=== PATIENT | female | born 1985 | race African-American/Black ===

== ENCOUNTER 2017-12-20 14:04 | Emergency (ER) | payer BC ==
[2017-12-20 14:46] LABS: ABS Basophils 0 10^3/ul (0-0.2); ABS Eosinophils 0 10^3/ul (0-0.6); ABS Lymphocytes 1.3 10^3/ul (1.0-4.8); ABS Monocytes 0.3 10^3/ul (0-0.8); ABS Nucleated RBC 0 10^3/ul; Eosinophil % 0.8 % (0-6); Hematocrit 40 % (35-47); Hemoglobin 13.5 g/dl (12.0-16.0); Lymphocyte % 27.4 % (25-47); Mean Corpuscular HGB Conc 34 g/dl (31-36); Mean Corpuscular Hemoglobin 28 pg (27-31); Mean Corpuscular Volume 84 fL (80-97); Mean Platelet Volume 9.2 um3 (7.4-10.4); Nucleated Red Blood Cells % 0.1; Platelet Count 170 10^3/ul (150-450); Red Blood Count 4.79 10^6/ul (4.00-5.40); Red Cell Distribution Width 13 % (10.5-15); White Blood Count 4.6 10^3/ul (3.5-10.8)
--- NOTE | 2017-12-20 14:57 | ED ---
Psychiatric Complaint - HPI Summary HPI Summary: This patient is a 32 year old F presenting to [facility] with a chief complaint of depression and SI with self-harm to her wrists. She states she started a new control 2 weeks ago which she thinks resulted in a rapid-onset of severe depression. She has a Hx of depression and states she had it under control until she started the new control. She takes 150mg of Zoloft for her depression and has been taking her medication. She has had more trouble sleeping in the last couple weeks which she states is a side effect of her control. - History Of Current Complaint Chief Complaint: EDMentalHealth Time Seen by Provider: 12/20/17 14:19 Hx Obtained From: Patient ?: No Onset/Duration: Sudden Onset Timing: Constant Severity Initially: Moderate Severity Currently: Moderate Character: Depressed Related History: Positive For: Prior Psychiatric Issues Has Suicidal: Reports: Thoughts - Allergies/Home Medications Allergies/Adverse Reactions: Allergies Allergy/AdvReac Type Severity Reaction Status Date / Time adapalene [From Differin] Allergy Unknown Verified 12/20/17 14:08 Reaction Details sesame seed Allergy Anaphylatic Verified 12/20/17 14:08 Shock tioconazole Allergy Unknown Verified 12/20/17 14:08 [From Monistat 1 Reaction (tioconazole)] Details Home Medications: Home Medications Zoloft 150 mg PO DAILY 12/20/17 [History Confirmed 12/20/17] PMH/Surg Hx/FS Hx/Imm Hx Cardiovascular History: Denies: Hx Coronary Artery Disease Psychiatric History: Reports: Hx Depression Infectious Disease History: No Infectious Disease History: Denies: Traveled Outside the [place] in Last 30 Days - Family History Known Family History: Negative: Cardiac Disease, Diabetes - Social History Alcohol Use: None Substance Use Type: Reports: None Smoking Status (MU): Never Smoked Tobacco Review of Systems Negative: Fever Positive: Depressed All Other Systems Reviewed And Are Negative: Yes Physical Exam - Summary Physical Exam Summary: VITAL SIGNS: Reviewed. GENERAL: Patient is a well-developed and nourished FEMALE who is lying comfortable in the stretcher. Patient is not in any acute respiratory distress. HEAD AND FACE: No signs of trauma. No ecchymosis, hematomas or skull depressions. No sinus tenderness. EYES: PERRLA, EOMI x 2, No injected conjunctiva, no nystagmus. EARS: Hearing grossly intact. Ear canals and tympanic membranes are within normal limits. MOUTH: Oropharynx within normal limits. NECK: Supple, trachea is midline, no adenopathy, no JVD, no carotid bruit, no c- spine tenderness, neck with full ROM. CHEST: Symmetric, no tenderness at palpation LUNGS: Clear to auscultation bilaterally. No wheezing or crackles. CVS: Regular rate and rhythm, S1 and S2 present, no murmurs or gallops appreciated. ABDOMEN: Soft, non-tender. No signs of distention. No rebound no guarding, and no masses palpated. Bowel sounds are normal. EXTREMITIES: FROM in all major joints, no edema, no cyanosis or clubbing. NEURO: Alert and oriented x 3. No acute neurological deficits. Speech is normal and follows commands. SKIN: Dry and warm PSYCH: Depressed, quiet, and SI. No homicidal thoughts or plan. No signs of psychosis or pressure speech. No tangential speech. Triage Information Reviewed: Yes Vital Signs On Initial Exam: Initial Vitals Temp Pulse Resp BP Pulse Ox 98.4 F 62 15 143/68 98 12/20/17 14:08 12/20/17 14:08 12/20/17 14:08 12/20/17 14:08 12/20/17 14:08 Vital Signs Reviewed: Yes Diagnostics - Vital Signs Vital Signs Temp Pulse Resp BP Pulse Ox 12/20/17 14:08 98.4 F 62 15 143/68 98 - Laboratory Lab Results: Lab Results 12/20/17 Range/Units 14:35 WBC 4.6 (3.5-10.8) 10^3/ul RBC 4.79 (4.00-5.40) 10^6/ul Hgb 13.5 (12.0-16.0) g/dl Hct 40 (35-47) % MCV 84 (80-97) fL MCH 28 (27-31) pg MCHC 34 (31-36) g/dl RDW 13 (10.5-15) % Plt Count 170 (150-450) 10^3/ul MPV 9.2 (7.4-10.4) um3 Neut % (Auto) 64.1 (38-83) % Lymph % (Auto) 27.4 (25-47) % [place] % (Auto) 7.1 H (0-7) % Eos % (Auto) 0.8 (0-6) % Baso % (Auto) 0.6 (0-2) % Absolute Neuts (auto) 3.0 (1.5-7.7) 10^3/ul Absolute Lymphs (auto) 1.3 (1.0-4.8) 10^3/ul Absolute Monos (auto) 0.3 (0-0.8) 10^3/ul Absolute Eos (auto) 0 (0-0.6) 10^3/ul Absolute Basos (auto) 0 (0-0.2) 10^3/ul Absolute Nucleated RBC 0 10^3/ul Nucleated RBC % 0.1 Result Diagrams: 12/20/17 14:35 12/20/17 14:35 Lab Statement: Any lab studies that have been ordered have been reviewed, and results considered in the medical decision making process. Course/Dx - Course Assessment/Plan: This patient is a 32 year old F presenting to [facility] with a chief complaint of depression and SI with self-harm to her wrists. She states she started a new control 2 weeks ago which she thinks resulted in a rapid -onset of severe depression. She has a Hx of depression and states she had it under control until she started the new control. She takes 150mg of Zoloft for her depression and has been taking her medication. She has had more trouble sleeping in the last couple weeks which she states is a side effect of her control. Blood work w/o a significant abnormality. She is medically cleared. She is awaiting for a [facility]. Patient is hemodynamically stable and A+O x 3. Patient assessed by Dr. Booth and recommends discharge home with F/U of [facility] as an outpatient. - Differential Dx/Clinical Impression Differential Diagnosis/HQI/PQRI: Positive: Anxiety, Depression, Suicidal Ideation Provider Diagnosis: Depression Discharge - Sign-Out/Discharge Documenting (check all that apply): Patient Departure - Discharge per [facility]. - Discharge Plan Condition: Stable Disposition: HOME Patient Education Materials: Depression (ED), Help Prevent Suicide (ED) Referrals: [facility] [Outside] [facility] [Outside] (Please follow up with [facility] as soon as possible) - Billing Disposition and Condition Condition: STABLE Disposition: Home - Attestation Statements Document Initiated by Scribe: Yes Documenting Scribe: Riley Yang Provider For Whom Scribe is Documenting (Include Credential): Rupesh Paredes MD Scribe Attestation: I, Riley Yang, scribed for Rupesh Paredes MD on 12/21/17 at 0749. Scribe Documentation Reviewed: Yes Provider Attestation: The documentation as recorded by the [email or web address] accurately reflects the service I personally performed and the decisions made by me, Rupesh Paredes MD
[2017-12-20 15:04] LABS: EGFR Non-African American 83.1 (>60)
[2017-12-20 15:16] LABS: Urine Appearance Clear; Urine Blood 1+ (Negative); Urine Color Yellow; Urine Ketones Negative (Negative); Urine Protein Negative (Negative); Urine Red Blood Cell Absent (Absent); Urine Specific Gravity 1.014 (1.010-1.030); Urine Urobilinogen Negative (Negative); Urine White Blood Cell Absent (Absent)
[2017-12-20 18:09] VITALS: BP 113/65
== END 2017-12-20 18:30 | disposition home or self-care (01) ==
LOC: ED 14:04
DX: F32.9 Major depressive disorder, single episode, unspecified (principal)
CPT/HCPCS: 36415; 80053; 80307; 80320; 80329; 81003; 81015; 84443; 85025; 99285; G0480

== ENCOUNTER 2020-12-11 11:31 | Inpatient (IN) ==
[2020-12-11] MEDS ORDERED: Lactated Ringers 1000 ml BAG 1,000 ML IV ONE (12:26)
[2020-12-11] MEDS ORDERED: Buffered Lidocaine 1% SYRIN 1 ml INTRADERM ONE (12:26)
[2020-12-11 13:00] LABS: ABS Lymphocytes 1.8 10^3/ul (1.0-4.8); ABS Monocytes 0.8 10^3/ul (0-0.8); ABS Neutrophils 6.8 10^3/ul (1.5-7.7); Eosinophil % 0.4 %; Hematocrit 36 % (35-47); Hemoglobin 12.4 g/dL (12.0-16.0); Lymphocyte % 19.2 %; Mean Corpuscular HGB Conc 34 g/dL (31-36); Mean Corpuscular Hemoglobin 29 pg (27-31); Mean Corpuscular Volume 83 fL (80-97); Platelet Count 186 10^3/uL (150-450); Red Blood Count 4.35 10^6 /uL (3.70-4.87); Red Cell Distribution Width 14 % (10-15); White Blood Count 9.5 10^3/uL (3.5-10.8)
[2020-12-11] MEDS ORDERED: Lactated Ringers 1000 ml BAG 1,000 ML IV SCH (13:00)
[2020-12-11 13:02] LABS: Urine Appearance Cloudy; Urine Bilirubin Negative (Negative); Urine Blood 3+ (Negative); Urine Color Yellow; Urine Glucose Negative (Negative); Urine Ketones Negative (Negative); Urine Nitrite Negative (Negative); Urine Protein 1+(30 mg/dL) (Negative); Urine Specific Gravity 1.012 (1.002-1.030); Urine Urobilinogen Negative (Negative)
[2020-12-11 13:05] LABS: Urine Bacteria 1+ (Absent); Urine Red Blood Cell 3+(>10/hpf) (Absent); Urine Squamous Epithelial Cell Present (Absent); Urine White Blood Cell 2+(11-20/hpf) (Absent)
[2020-12-11] MEDS ORDERED: OBEPIDURAL 0 ML EPIDURAL ONE (13:07)
[2020-12-11 13:10] LABS: Albumin 3.6 g/dL (3.2-5.2); Albumin/Globulin Ratio 1.2 (1-3); Potassium 3.7 mmol/L (3.5-5.0); Total Bilirubin 0.3 mg/dL (0.2-1.0); Total Protein 6.6 g/dL (6.4-8.9); Uric Acid 4.1 mg/dL (2.3-6.6)
[2020-12-11] MEDS ORDERED: Bupivacaine 0.25% SDV PF 10 ML VIAL INJ ONE (13:17)
[2020-12-11 13:26] LABS: Urine Benzodiazepine Screen None Detected (None Detect); Urine Cannabinoids Screen None Detected (None Detect); Urine Opiates Screen None Detected (None Detect)
[2020-12-11 13:28] LABS: Rapid COVID-19 Molecular Undetected (Undetected)
[2020-12-11] MEDS ORDERED: Oxytocin in LR 20 UNITS/1,000 ML BAG IVPB ONE (13:46)
[2020-12-11] MEDS ORDERED: Dibucaine 1% OINT 28.35 GM TUBE PR PRN (13:56)
[2020-12-11] MEDS ORDERED: Witch Hazel PAD JAR TOPICAL PRN (13:56)
[2020-12-11] MEDS ORDERED: Glycerin ADULT 2.4 gm SUPP PR PRN (13:56)
[2020-12-11] MEDS ORDERED: Lidocaine 1% VIAL 10 MG/ML VIAL ONE (15:48)
[2020-12-12 06:37] LABS: ABS Basophils 0.1 10^3/ul (0-0.2); ABS Eosinophils 0.1 10^3/ul (0-0.6); ABS Lymphocytes 2.5 10^3/ul (1.0-4.8); ABS Neutrophils 7.3 10^3/ul (1.5-7.7); Hematocrit 32 % (35-47); Hemoglobin 10.8 g/dL (12.0-16.0); Lymphocyte % 22.5 %; Mean Corpuscular HGB Conc 34 g/dL (31-36); Mean Corpuscular Hemoglobin 29 pg (27-31); Mean Corpuscular Volume 85 fL (80-97); Mean Platelet Volume 8.8 fL (7.4-10.4); Platelet Count 182 10^3/uL (150-450); Red Blood Count 3.73 10^6 /uL (3.70-4.87); Red Cell Distribution Width 14 % (10-15); White Blood Count 10.9 10^3/uL (3.5-10.8)
[2020-12-12 12:18] VITALS: BP 96/57
== END 2020-12-12 16:37 | disposition home or self-care (01) | DRG 806 ==
LOC: MCHOBOUT 11:31 → MCHOB 12:40
PROVIDERS: ADMIT Midwife; ATTEND Midwife